=== PATIENT | female | born 1995 | race Caucasian/White ===

== ENCOUNTER 2017-04-30 05:21 | Inpatient (IN) | payer OTHER ==
[~2017-04-30] VITALS: Ht 165.1 cm; Wt 65.5 kg
[2017-04-30] VITALS (34 sets, daily range): BP systolic 115–151; BP diastolic 69–116; PULSE 68–123; TEMP 97.8–99.9
[2017-04-30] MEDS ORDERED: PRENATAL MVI (05:44)
[2017-04-30 08:34] LABS: BASO % 0.3 % (0.0-2.0); EOS % 0.3 % (0-4.0); GRAN # 8.8 (1.4-6.5); HEMATOCRIT 38.6 % (37.0-47.0); HEMOGLOBIN 13.6 g/dl (12.5-16.0); LYMPH # 1.9 (1.2-3.4); LYMPH % 16.3 % (20.0-51.0); MEAN CELL VOLUME 88 fl (80.0-100.0); MEAN CORPUSCULAR HEMOGLOBIN 31 pg (27.0-31.0); MEAN CORPUSCULAR HGB CONC 35 g/dl (33.0-37.0); MONO % 8.6 % (1.7-9.3); PLATELET COUNT 288 K/mm3 (130-400); RED BLOOD COUNT 4.38 M/mm3 (4.10-5.30); REDCELL DISTRIBUTION WIDTH-CV 12.2 % (11.5-14.5); WHITE BLOOD COUNT 11.9 K/mm3 (4.8-10.8)
[2017-05-01 01:15] VITALS: BP 118/67; PULSE 91; TEMP 98.3
[2017-05-01 05:20] VITALS: BP 116/68; PULSE 74; TEMP 98
[2017-05-01 08:45] VITALS: BP 99/60; PULSE 83; TEMP 98.9
[2017-05-01 12:00] VITALS: BP 113/68; PULSE 85; TEMP 98.6
[2017-05-01 16:00] VITALS: BP 113/68; PULSE 87; TEMP 98.2
[2017-05-01 20:30] VITALS: BP 118/74; PULSE 81; TEMP 97.4
[2017-05-02 08:16] VITALS: BP 126/80; PULSE 80; TEMP 97.6
[2017-05-02] MEDS ORDERED: PERCOCET 325 MG1 TA2 PO (08:52)
[2017-05-02] MEDS ORDERED: IBU600 MG PO (08:52)
== END 2017-05-02 16:00 | disposition home or self-care (01) | DRG 775 ==
LOC: LDRO 05:21 → LDR 05:22 → OB 05:22
PROVIDERS: Obstetrics & Gynecology
PROC: 10E0XZZ Delivery of Products of Conception, External Approach (ICD-10-PCS; principal; 2017-04-30)
PROC: 0KQM0ZZ Repair Perineum Muscle, Open Approach (ICD-10-PCS; 2017-04-30)
PROC: 0UQMXZZ Repair Vulva, External Approach (ICD-10-PCS; 2017-04-30)
DX: O48.0 Post-term pregnancy (principal); O76 Abnormality in fetal heart rate and rhythm complicating labor and delivery; O77.0 Labor and delivery complicated by meconium in amniotic fluid; O70.0 First degree perineal laceration during delivery; O70.1 Second degree perineal laceration during delivery; Z3A.40 40 weeks gestation of pregnancy; Z37.0 Single live birth
CPT/HCPCS: J2590; J7120

== ENCOUNTER 2019-03-22 05:09 | Inpatient (IN) | payer SELFPAY ==
[~2019-03-22] VITALS: Ht 165.1 cm; Wt 66.8 kg
[2019-03-22] VITALS (43 sets, daily range): BP systolic 93–169; BP diastolic 56–90; PULSE 53–106; TEMP 97.8–98.6
[~2019-03-22 05:09] MED LIST: IBU600 MG PO; PERCOCET 325 MG1 TA2 PO; PRENATAL MVI
--- NOTE | 2019-03-22 05:15 | NUR ---
G2L1 at 38 weeks and 2 days arrives to unit with complaint of leakage of fluid. Pt states at 0400 she felt a gush of fluid and has continued to feel leaking since. Pt denies feeling contractions, denies vaginal bleeding, and reports good movement. Pt oriented to room, bed in low and locked position, call light within reach. Pt changed into new gown. US and toco explained and applied. Pt with a previous uncomplicated vaginal delivery. Would like an epidural later. Plan of care reviewed. Vital signs obtained. SVE 2/80/-3, leakage of clear fluid on exam. Amnitrace positive.
--- NOTE | 2019-03-22 06:10 | NUR ---
0610-Bedside shift report recieved from NNEKA Khanna. Patient Siting SF in bed with EFM in place. Reactive FHR noted. Spouse, Mariano, at bedside. Updated on plan of care and assessment completed. 0628-Up to bathroom. 0639-Pitocin started per MD order, see EMAR. 0710-Dr. Lacey updated, see physician notification.
[2019-03-22 06:32] LABS: BASO % 0.2 % (0.0-2.0); EOS # 0.1 (0.0-0.7); EOS % 0.7 % (0-4.0); GRAN # 4.7 (1.4-6.5); GRAN % 58.5 % (42.2-75.2); HEMATOCRIT 38.7 % (37.0-47.0); HEMOGLOBIN 13.4 g/dl (12.5-16.0); LYMPH # 2.5 (1.2-3.4); LYMPH % 30.9 % (20.0-51.0); MEAN CELL VOLUME 89 fl (80.0-100.0); MEAN CORPUSCULAR HEMOGLOBIN 31 pg (27.0-31.0); MEAN CORPUSCULAR HGB CONC 35 g/dl (33.0-37.0); MEAN PLATELET VOLUME 10.7 fl (7.4-10.4); MONO # 0.7 (0.1-0.6); MONO % 8.8 % (1.7-9.3); PLATELET COUNT 277 K/mm3 (130-400); RED BLOOD COUNT 4.35 M/mm3 (4.10-5.30); REDCELL DISTRIBUTION WIDTH-CV 11.9 % (11.5-14.5)
--- NOTE | 2019-03-22 07:52 | NUR ---
0752-Late appearing variable decel in FHR with spontaneous return to baseline. RN to patient room. Patient reports "contractions starting to get a little more intense and I want to go ahead and request my epidural now." Repositioned LL and jairon aWldron CRNA who is in OR of patients request.
--- NOTE | 2019-03-22 08:13 | NUR ---
0813-Variable decel in FHR down to 90bpm with quick return to baseline. RN to room. SVE /-3, Repositioned LL. 0825-Patient to RL. 0830-Dr. Lacey on unit, reviews FHR strip, no new orders. 0835-SYDNEE Waldron to patient room. Updated on epidural placement. Patient to bedside JAIMES for placement. 0842-SS administered by SYDNEE Waldron, Patient tolerated well. VSS, See flow record. Dr. Lacey into see patient, Reviews plan of care with patient. 0845-Patient to LL, Updated on Safety.
--- NOTE | 2019-03-22 10:33 | NUR ---
1033-Subtle late decel in FHR, spontaneous return to baseline, RN repositions RL.
--- NOTE | 2019-03-22 13:28 | NUR ---
Dr. Lacey updated on SVE /-1, reviewed strip, see physician notification. 1400-Patient feeling pressure, SVE 10/+1, set up for delivery. 1403- SYDNEE Waldron notified of patient feeling sharp pain on left abdomen unrelieved by MARKETING ANALYT[employer] ANALYST button. SYDNEE Waldron in route. 1404- Dr. Lacey's requested for delivery. 1412-Dr. Lacey to room for delivery. Vanita to room, doses epidural, see anesthesia records. 1413-Forebag of fluid noted and ruptured by Dr. Lacey. Patient begins pushing with contraction with MD at bedside. Patient moves vertex well. On second push MD delivers head at 1414 immediately followed by body. Viable male infant bulb suctioned by MD and cord clamped x2 and cut by FOB. to mothers abodmen and care of infant assumed by nursery nurse NNEKA Pavon. Apgars 8/9/9. 1416-Spontaneous delivery of intact placenta by MD. Fundal massage firm, Lochia WNL EBL 200ml, Pitocin bolus per MD order. 1st degree perineal lac repaired by MD. Jenna care provided. Updated patient on safety and plan of care.
[2019-03-23 02:45] VITALS: BP 101/56; PULSE 68; TEMP 98.2
--- NOTE | 2019-03-23 06:26 | NUR ---
REPORT RECIEVED FROM OFF GOING RN, NELSON Bansal. CARE ASSUMED BY THIS RN.
[2019-03-23 07:28] VITALS: BP 122/80; PULSE 83; TEMP 97.8
[2019-03-23] MEDS ORDERED: MOTRIN 800800 MG/TAB PO (08:45)
--- NOTE | 2019-03-23 10:38 | NUR ---
Initial visit attempt; Consult in progress, W[employer] Sal[employer] Administrator left card of congratulations for the of their son and information regarding the availability of spiritual care at [facility].
[2019-03-23 12:30] VITALS: BP 112/66; PULSE 76; TEMP 98.1
[2019-03-23 15:19] VITALS: BP 104/64; PULSE 64; TEMP 98.1
[2019-03-23 19:40] VITALS: BP 108/66; PULSE 65; TEMP 98.1
[2019-03-24 09:00] VITALS: BP 123/76; PULSE 92; TEMP 97.9
== END 2019-03-24 14:35 | disposition home or self-care (01) | DRG 807 ==
LOC: LDR 05:09 → LDRO 05:09 → LDR 05:15 → OB 18:54
PROVIDERS: Obstetrics & Gynecology; ADMIT Obstetrics & Gynecology
PROC: 10E0XZZ Delivery of Products of Conception, External Approach (ICD-10-PCS; principal; 2019-03-22)
PROC: 0HQ9XZZ Repair Perineum Skin, External Approach (ICD-10-PCS; 2019-03-22)
DX: O42.92 Full-term premature rupture of membranes, unspecified as to length of time between rupture and onset of labor (principal); Z37.0 Single live birth; O70.0 First degree perineal laceration during delivery; Z3A.38 38 weeks gestation of pregnancy
CPT/HCPCS: J2590; J2795; J7120